=== PATIENT | female | born 1950 | race Caucasian/White ===

== ENCOUNTER → 2017-08-26 | Outpatient (CLI) | payer BC ==
--- NOTE | 2017-08-26 11:31 | MM ---
Reason for exam: screening (asymptomatic). Last mammogram was performed 1 year and 4 months ago. History: Patient is postmenopausal. Family history of premenopausal breast cancer in 2 paternal aunts at age 40. Benign excisional biopsy of the left breast, September 18, 2002. Took hormonal contraceptives for 8 years beginning at age 22. Physical Findings: A clinical breast exam by your physician is recommended on an annual basis and results should be correlated with mammographic findings. MG Screening Mammo w CAD Bilateral CC and MLO view(s) were taken. Prior study comparison: April 16, 2016, bilateral MG screening mammo w CAD. April 06, 2015, bilateral MG screening mammo w CAD. The breast tissue is extremely dense which could obscure a lesion on mammography. Finding: There are few typically benign round, linear calcifications in both breasts. There is no discrete abnormality. ASSESSMENT: Benign, BI-RAD 2 RECOMMENDATION: Routine screening mammogram of both breasts in 1 year.
== END | disposition home or self-care (01) ==
LOC: RADMAMWWP 06:59
PROVIDERS: ATTEND Family Medicine
DX: Z12.31 Encounter for screening mammogram for malignant neoplasm of breast (principal)

== ENCOUNTER 2017-08-30 06:38 | Day surgery (SDC) | payer BC ==
[2017-08-28 08:35] VITALS: BMI 38.0
[~2017-08-30 06:38] MED LIST: LACTATED RINGERS 1,000 ML IV SCH
[2017-08-30 06:59] VITALS: TEMP 96.8
[2017-08-30 07:11] LABS: Glucose,Whole Blood 137 mg/dL (75-99)
[2017-08-30] MEDS ORDERED: LIDOCAINE 1% INJ 10MG/ML (20 ML MDV) ONE (07:35)
[2017-08-30] MEDS ORDERED: PROPOFOL 10 MG/ML 20 ML VIAL IV ONE (07:35)
--- NOTE | 2017-08-30 08:05 | P.PCN ---
Date of Procedure: 08/30/17 Procedure(s) Performed: Brief history: Patient is a pleasant 66-year-old pleasant white female, scheduled for an elective upper endoscopy as well as colonoscopy as a part of evaluation oflong- standing history of GERD and change in bowel habits. Procedure performed: Esophagogastroduodenoscopywith biopsy Colonoscopy with snare polypectomy Preoperative diagnosis: GERD Change in bowel habits Anesthesia: MAC Procedure: After informed consent was obtained from the patient was brought into the endoscopy unit and IV sedation was administered by anesthesia under continuous monitoring. Initially upper endoscopy was done. The Olympus GF 160 video endoscope was inserted inserted into the mouth and esophagus intubated without any difficulty and was gradually advanced into the stomach and duodenum and carefully examined. The bulb and second part of the duodenum appeared normal. The scope was then withdrawn into the stomach adequately insufflated with air and upon careful examination the antrum had mild patchy areas of erythema consistent with gastritis and biopsies were done from this area. The body, cardia and fundus appeared normal. The scope was then withdrawn into the esophagus. The GE junction was located at 40 cm to the incisors. It appeared regular with no erythema erosions or ulcerations. Rest of the esophagus appeared normal. Patient tolerated the procedure well. At this time the patient continued to remain sedation. Initial digital rectal examination was normal. Olympus CF 160 video colonoscope was then inserted into the rectum and gradually advanced to the cecum without any difficulty. Careful examination was performed as the scope was gradually being withdrawn. The prep was excellent. In the base of the cecum there was a 5 mm polyp that was removed by snare polypectomy. The cecum, ascending colon, transverse colon, descending colon, sigmoid colon and rectum appeared normal. Scattered sigmoid diverticulosis seen. Retroflexion was performed in the rectum and no lesions were noted. Patient tolerated the procedure well. Impression: 1.Upper endoscopy revealed mild antral gastritis but no evidence of esophagitis or peptic ulcer disease 2.Colonoscopy revealed 5 mm cecal polyp status post polypectomy and scattered sigmoid diverticulosis. Recommendations: Findings of this examination were discussed with the patient as well as her family. She was advised to follow with the biopsy results. If the biopsy shows a tubular adenoma, she can have a repeat colonoscopy in 5 years.
[2017-08-30 08:30] VITALS: BP 165/72; PULSE 58; RESP 17
== END 2017-08-30 09:08 | disposition home or self-care (01) ==
LOC: ORWHC2ENDO 06:38
PROVIDERS: ATTEND Internal Medicine Gastroenterology
DX: K29.50 Unspecified chronic gastritis without bleeding (principal); K63.5 Polyp of colon; K57.30 Diverticulosis of large intestine without perforation or abscess without bleeding; K21.9 Gastro-esophageal reflux disease without esophagitis; I10 Essential (primary) hypertension; E78.5 Hyperlipidemia, unspecified; E11.9 Type 2 diabetes mellitus without complications; Z79.84 Long term (current) use of oral hypoglycemic drugs; F32.9 Major depressive disorder, single episode, unspecified; Z79.02 Long term (current) use of antithrombotics/antiplatelets; Z79.82 Long term (current) use of aspirin; Z79.899 Other long term (current) drug therapy
CPT/HCPCS: 88305; 88342; 45385; 43239; J2001; J2704

== ENCOUNTER → 2018-02-14 | Outpatient (CLI) | payer MEDICARE ==
--- NOTE | 2018-02-14 13:28 | US ---
EXAMINATION TYPE: US abdomen complete DATE OF EXAM: 02/14/2018 COMPARISON: US of kidneys CLINICAL HISTORY: R10.9 abd pain. RUQ pain EXAM MEASUREMENTS: Liver Length: 16.4 cm Gallbladder Wall: 0.2 cm CBD: 0.4 cm Spleen: 11.7 cm Right Kidney: 12.5 x 4.6 x 6.1 cm Left Kidney: 14.2 x 5.1 x 5.8 cm Pancreas: not well visualized due to midline bowel gas Liver: difficult to penetrate Gallbladder: No stones seen Evidence for sonographic Avendaño's sign: No CBD: wnl Spleen: wnl Right Kidney: small exophytic cyst measures 1.2 x 1.0 x 1.2 Left Kidney: No hydronephrosis or masses seen and the kidneys show normal cortical medullary diffe rentiation bilaterally. Upper IVC: wnl Abd Aorta: visualized portions wnl, partially obscured by bowel. There is no ascites. IMPRESSION: Exam somewhat limited. Coarse echotexture within the liver is again noted, correlate for hepatocellular disease, hepatic steatosis. Probable simple cyst lower pole right kidney exophytic loc ation.
== END | disposition home or self-care (01) ==
LOC: RADUSWWP 09:28
PROVIDERS: ATTEND Family Medicine
DX: R93.2 Abnormal findings on diagnostic imaging of liver and biliary tract (principal); R10.9 Unspecified abdominal pain
CPT/HCPCS: 76700

== ENCOUNTER → 2018-07-15 | Outpatient (CLI) | payer MEDICARE ==
--- NOTE | 2018-07-15 08:24 | MR ---
EXAMINATION TYPE: MR shoulder LT wo con DATE OF EXAM: 07/15/2018 COMPARISON: NONE HISTORY: Rotator cuff tear syndrome per order. Shoulder pain for several months with difficulty raisi ng overhead TECHNIQUE: Multiplanar, multisequence imaging of the left shoulder is performed without contrast. FINDINGS: Rotator Cuff: Supraspinatus and infraspinatus tendons are both intact to humeral head attachment. No suspicious partial or full-thickness tear is identified. Subscapularis tendon is intact. Rotator cuff muscle bulk is fairly well-maintained. Acromioclavicular Joint: There is moderate to advanced joint space loss with capsular hypertrophy and mild spurring. Inferior fat plane is maintained. Distal acromion morphology is unremarkable. Glenohumeral Joint: There is large glenohumeral joint effusion with suggestion of loose bodies as the re are round and oval areas of increased signal. Moderate joint space loss is appreciated. Labrum: Blunted increased signal superior labrum is consistent with degenerative tear. Biceps anchor is maintained. Biceps Tendon: The long head of biceps is in normal location within bicipital groove. Bone marrow signal: Subchondral cystic change superolateral humeral head is identified. Other: No additional significant abnormality is appreciated. IMPRESSION: 1. No rotator cuff tear is identified. 2. 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 Correlate with radiographs advised. 3. Moderate AC joint arthropathy without underlying impingement.
== END ==
LOC: RADMRIMAIN 06:31
PROVIDERS: ATTEND Physician Assistant Medical
DX: M12.812 Other specific arthropathies, not elsewhere classified, left shoulder (principal); M25.412 Effusion, left shoulder; M24.012 Loose body in left shoulder; I10 Essential (primary) hypertension

== ENCOUNTER → 2019-08-19 | Outpatient (CLI) | payer MEDICARE ==
--- NOTE | 2019-08-21 13:26 | MM ---
Reason for exam: screening (asymptomatic). Last mammogram was performed 2 years ago. History: Patient is postmenopausal. Family history of premenopausal breast cancer in 2 paternal aunts at age 40. Benign excisional biopsy of the left breast, September 18, 2002. Took hormonal contraceptives for 8 years beginning at age 22. Physical Findings: A clinical breast exam by your physician is recommended on an annual basis and results should be correlated with mammographic findings. MG Screening Mammo w CAD Bilateral CC and MLO view(s) were taken. Prior study comparison: August 26, 2017, bilateral MG screening mammo w CAD. April 16, 2016, bilateral MG screening mammo w CAD. The breast tissue is heterogeneously dense. This may lower the sensitivity of mammography. No significant changes when compared with prior studies. ASSESSMENT: Benign, BI-RAD 2 RECOMMENDATION: Routine screening mammogram of both breasts in 1 year.
== END | disposition home or self-care (01) ==
LOC: RADMAMWWP 14:40
PROVIDERS: ATTEND Family Medicine
DX: Z12.31 Encounter for screening mammogram for malignant neoplasm of breast (principal)
CPT/HCPCS: 77067

== ENCOUNTER → 2020-07-21 | Outpatient (CLI) | payer MEDICARE ==
--- NOTE | 2020-07-21 11:36 | US ---
EXAMINATION TYPE: US abdomen complete DATE OF EXAM: 07/21/2020 COMPARISON: 02/14/2018 CLINICAL HISTORY: 69-year-old female R10.9 ABD PAIN. TECHNIQUE: Multiple sonographic images of the abdomen are obtained. FINDINGS: Assistant Offset Press Operator notes: exam limitations due to body habitus. EXAM MEASUREMENTS: Liver Length: 15.1 cm Gallbladder Wall: .3 cm CBD: .6 cm Spleen: 11.1 cm Right Kidney: 11.1 x 4.9 x 5.0 cm Left Kidney: 11.9 x 5.1 x 4.6 cm Pancreas: Obscured by bowel gas Liver: Increased attenuation. No definite focal lesion. Gallbladder: No stones seen. Image 45 shows some artifact within the fundal lumen of the gallbladder . Evidence for sonographic Avendaño's sign: No CBD: wnl Spleen: wnl Right Kidney: Hypoechoic area seen lower pole 1.2 x 1.0 x 1.6 cm. Previously, a 1.2 cm cyst was see n in this location. Hydronephrosis. Left Kidney: No hydronephrosis. Upper IVC: wnl Abd Aorta: Upper and distal abdominal aorta borderline ectatic at 2.5 cm. IMPRESSION: 1. Moderate hepatic steatosis. 2. No gallstones. Bile duct at 6 mm is acceptable given patient's age. 3. An indeterminate 1.6 cm hypoechoic lesion within the lower pole of the right kidney. The patient's 2018 exam showed a 1.2 cm cortical cyst in this location. A cyst that has slightly enlarged in the i nterval is suspected. Internal echoes could be artifactual or could represent debris. Six-month follo w-up ultrasound recommended to reassess.
== END | disposition home or self-care (01) ==
LOC: RADUSWWP 10:47
PROVIDERS: ATTEND Family Medicine
DX: K76.0 Fatty (change of) liver, not elsewhere classified (principal)
CPT/HCPCS: 76700

== ENCOUNTER → 2020-09-15 | Outpatient (CLI) | payer MEDICARE ==
--- NOTE | 2020-09-19 12:31 | MM ---
Reason for exam: screening (asymptomatic). Last mammogram was performed 1 year and 1 month ago. History: Patient is postmenopausal. Family history of premenopausal breast cancer in 2 paternal aunts at age 40. Benign excisional biopsy of the left breast, September 18, 2002. Took hormonal contraceptives for 8 years beginning at age 22. Physical Findings: A clinical breast exam by your physician is recommended on an annual basis and results should be correlated with mammographic findings. MG Screening Mammo w CAD Bilateral CC and MLO view(s) were taken. Prior study comparison: August 19, 2019, bilateral MG screening mammo w CAD. August 26, 2017, bilateral MG screening mammo w CAD. The breast tissue is heterogeneously dense. This may lower the sensitivity of mammography. No significant changes when compared with prior studies. ASSESSMENT: Negative, BI-RAD 1 RECOMMENDATION: Routine screening mammogram of both breasts in 1 year.
== END | disposition home or self-care (01) ==
LOC: RADMAMWWP 16:17
PROVIDERS: ATTEND Family Medicine
DX: Z12.31 Encounter for screening mammogram for malignant neoplasm of breast (principal)
CPT/HCPCS: 77067

== ENCOUNTER → 2020-09-22 | Outpatient (CLI) | payer MEDICARE ==
--- NOTE | 2020-09-22 11:14 | CT ---
EXAMINATION TYPE: CT angio chest DATE OF EXAM: 09/22/2020 COMPARISON: None HISTORY: 69-year-old female R79.1 abnormal coagulation labs TECHNIQUE: Contiguous axial scanning of the chest performed with IV Contrast, patient injected with 1 00 mL of Isovue 370. Coronal/sagittal MIP reconstructions performed. CT DLP: 453 mGycm Automated exposure control for dose reduction was used. FINDINGS: Heart borderline to mildly enlarged. Trace pericardial effusion. Mild LAD coronary artery calcificati ons. Bovine configuration to the aortic arch with minimal atherosclerotic arch calcifications. There is borderline adequate opacification of the pulmonary arterial system. No large central or defi nite lobar branch pulmonary embolus. Many of the segmental and more distal arterial branches are very limited and nondiagnostic especially in the lower lobes. Scattered small mediastinal lymph nodes. No thoracic lymphadenopathy by CT size criteria. Largest priscilla sures 8 mm in the precarinal space. Prominent hazy areas of atelectasis throughout the lungs. Some mild mosaic attenuation in the upper l ungs suggests air trapping. Mild diffuse bronchial wall thickening. No consolidation or pleural effus ion. Tiny hiatal hernia. Low-density nodule of the left adrenal gland measuring 2.9 x 2.0 cm compatible with a lipid rich adre nal adenoma. Suspect some underlying fatty infiltration of the liver. Bones: Status post left shoulder arthroplasty. Mild degenerative disc disease throughout the thoracic spine. IMPRESSION: 1. BORDERLINE ADEQUATE OPACIFICATION OF THE PULMONARY ARTERIAL SYSTEM. NO LARGE CENTRAL OR DEFINITE L OBAR BRANCH PULMONARY EMBOLUS. MANY OF THE SEGMENTAL AND MORE DISTAL BRANCHES ESPECIALLY OF THE LOWER LOBES ARE NONDIAGNOSTIC. 2. BORDERLINE TO MILD CARDIOMEGALY. 3. MILD BRONCHIAL WALL THICKENING AND SOME MOSAIC ATTENUATION IN THE UPPER LUNGS SUGGESTING AIR STUART ING. CORRELATE FOR SMALL AIRWAYS DISEASE. 4. 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
== END | disposition home or self-care (01) ==
LOC: RADCTMAIN 10:12
PROVIDERS: ATTEND Family Medicine
DX: I51.7 Cardiomegaly (principal); R91.8 Other nonspecific abnormal finding of lung field; K44.9 Diaphragmatic hernia without obstruction or gangrene
CPT/HCPCS: 71275; Q9967

== ENCOUNTER 2020-10-31 06:29 | Day surgery (SDC) | payer MEDICARE ==
[2020-10-27 09:40] VITALS: BMI 42.7
[~2020-10-31 06:29] MED LIST changes: +ALPRAZolam 0.25 MG TAB PO PRN; +ALPRAZolam 0.5 MG TAB PO PRN; +ASPIRIN 325 MG TAB PO STA; +ATORVASTATIN 80 MG TAB PO STA; -LACTATED RINGERS 1,000 ML IV SCH; +NITROGLYCERIN SL TABS 0.4 MG TAB SUBLINGUAL PRN; +SODIUM CHLORIDE 0.9% 1,000 ML in EMPTY BAG 1 BAG IV ONE
[2020-10-31] MEDS ORDERED: SODIUM CHLORIDE 0.9% 1,000 ML IV ONE (06:40)
[2020-10-31 07:06] VITALS: RESP 16; TEMP 97.9
[2020-10-31 07:06] LABS: Glucose,Whole Blood 178 mg/dL (75-99)
[2020-10-31] MEDS ORDERED: LIDOCAINE 1% INJ 10MG/ML (20 ML MDV) ONE (07:28)
[2020-10-31] MEDS ORDERED: VERAPAMIL 2.5 MG/ML 2 ML AMP ONE (07:29)
[2020-10-31] MEDS ORDERED: fentaNYL (PF) 50 MCG/ML 2 ML AMP IVP ONE (07:34)
[2020-10-31] MEDS: MIDAZOLAM 2 MG/2 ML VIAL IVP ONE ×2 (07:34→07:43)
[2020-10-31] MEDS ORDERED: fentaNYL (PF) 50 MCG/ML 2 ML AMP ONE (07:34)
[2020-10-31] MEDS: LIDOCAINE 1% INJ 10MG/ML (20 ML MDV) SQ ONE ×2 (07:38→07:46)
[2020-10-31] MEDS: VERAPAMIL SYRINGE (5 MG/10 ML) INTRAARTER ONE ×2 (07:45→08:15)
[2020-10-31] MEDS ORDERED: HEPARIN SODIUM 1,000 UN/ML (10ML VL) ONE (08:01)
[2020-10-31] MEDS ORDERED: HEPARIN SODIUM 1,000 UN/ML (10ML VL) IV ONE (08:02)
[2020-10-31] MEDS ORDERED: IOPAMIDOL-370 125ML BTL INJ ONE (08:15)
[2020-10-31] MEDS ORDERED: IOPAMIDOL-370 50ML BTL INJ ONE (08:15)
[2020-10-31] MEDS ORDERED: RX INFO: IV CONTRAST WAS GIVEN 1 EACH MISC MISCELLANE PRN (08:16)
[2020-10-31 08:17] LABS: O2 Sat Blood Gas 69.3 %
[2020-10-31 08:17] LABS: O2 Sat Blood Gas 95.5 %
[2020-10-31 08:18] LABS: O2 Sat Blood Gas 70.1 %
--- NOTE | 2020-10-31 08:29 | P.CARDCATH ---
Description of Procedure: PROCEDURES PERFORMED: Left heart catheterization, left ventriculogram, bilateral coronary angiography, right heart catheterization, ultrasound-guided access INDICATION: Dyspnea on exertion, abnormal stress test, chest pain HISTORY: Patient is a pleasant 69-year-old female with history of rheumatoid arthritis, diabetes mellitus type 2, hypertension and obstructive sleep apnea who presents secondary to increasing dyspnea on exertion with fairly minimal activity over the last month. She did have workup including echocardiogram with normal left ventricular function and indeterminate diastology and a stress test which showed diaphragmatic attenuation artifact however reversible apical inferior defect. Due to persistent shortness breath and chest pressure, patient was recommended for a right and left heart catheterization. CONSENT:I have discussed the risks, benefits and alternative therapies for the above-mentioned procedure and for both sedation/analgesia as well as necessary blood product administration, if indicated, as they pertain to this patient. The patient has indicated understanding and acceptance of the risks and procedures discussed. PROCEDURE: After the risks, benefits and alternatives of the above mentioned procedure explained in detail with the patient, informed consent was obtained. Patient was taken to the catheterization lab and prepped and draped in usual fashion. 1% lidocaine was used to anesthetize the right radial artery. A 6- Nigerian sheath was placed in the right radial artery using modified Seldinger technique. 1% lidocaine was used to anesthetize the right brachial area. A 6- Nigerian sheath was placed in the right brachial vein using modified Seldinger technique an ultrasound guidance. A 6-Nigerian [place]-Kevin catheter was inserted and pressure measurements were obtained in the right atrium, right ventricle, pulmonary artery and pulmonary capillary wedge pressure. Oxygen saturations were obtained in the right atrium and pulmonary artery for Kelvin calculations. Left coronary angiography was performed with a 5-Nigerian JL 3.5 catheter and right coronary angiography was performed with a 5-Nigerian JR5 catheter in various views. A 5-Nigerian pigtail catheter was inserted into the left ventricle and pressure measurements were obtained. Left ventriculography was performed in the COBIAN projection with a power injection. The right radial sheath was removed and a TR band was placed with hemostasis achieved. The right radial sheath was removed and pressure was held with hemostasis obtained. The patient tolerated the procedure well. Patient was transported back to the post catheterization holding area in stable condition. Conscious Sedation: Patient was monitored under the direct supervision of vision of myself for conscious sedation using Versed and fentanyl for a total duration of 40 minutes RIGHT HEART CATHETERIZATION: RA: 7 mmHg RV: 40/6 mmHg PA: 41/7 (23) mmHg PCWP: 13 mmHg Ao: 133/66 LV: 146/5, LVEDP 15 mmHg PA O2 saturation: 70% RA O2 saturation: 69% Right radial O2 saturation: 96% Cardiac output: 6.83 L/min Caridac index: 3.01 L/min/m2 SELECTIVE CORONARY ARTERIOGRAPHY: LEFT MAIN: The left main is a large caliber vessel which bifurcates into the LAD and circumflex. There is no significant stenosis. LEFT ANTERIOR DESCENDING CORONARY ARTERY: LAD is a large caliber vessel which wraps around to the apex. There is no significant stenosis. LEFT CIRCUMFLEX CORONARY ARTERY: Left circumflex is a moderate caliber vessel without significant stenosis. RIGHT CORONARY ARTERY: The right coronary artery is a large caliber vessel which gives off a PDA and PLV branch and is the dominant vessel. There is no significant stenosis. LEFT VENTRICULOGRAPHY: Left ventricular ejection fraction is 60% without wall motion abnormalities. There is 1+ mitral regurgitation and no significant gradient with pullback across the aortic valve. FINAL IMPRESSION: 1. Normal coronary arteries as described above. 2. Normal ejection fraction 60% percent without wall motion abnormalities. 3. Normal left and right sided pressures 4. Mild mitral regurgitation PLAN: 1. Aggressive risk factor modification per most recent ACC/AHA guidelines. Consider noncardiac workup of dyspnea. 2. Follow-up in the office in 1-2 weeks.
[2020-10-31 14:27] VITALS: BP 135/70; PULSE 66
== END 2020-10-31 12:08 | disposition home or self-care (01) ==
LOC: CATHCVL 06:29
PROVIDERS: ATTEND Internal Medicine
DX: I34.0 Nonrheumatic mitral (valve) insufficiency (principal); R06.00 Dyspnea, unspecified; R07.2 Precordial pain; R94.39 Abnormal result of other cardiovascular function study; M06.9 Rheumatoid arthritis, unspecified; G47.33 Obstructive sleep apnea (adult) (pediatric); E11.9 Type 2 diabetes mellitus without complications; I10 Essential (primary) hypertension; E78.5 Hyperlipidemia, unspecified; E66.9 Obesity, unspecified; Z68.41 Body mass index [BMI] 40.0-44.9, adult; Z82.49 Family history of ischemic heart disease and other diseases of the circulatory system
CPT/HCPCS: 93460; 85018; 82810; C1751; C1769; C1894; J2250; J2001; J3010; J1644; Q9967 ×2

== ENCOUNTER → 2020-11-08 | Outpatient (CLI) | payer MEDICARE ==
[2020-11-08 16:01] LABS: Basophils % (A) 0 %; Eosinophils # (A) 0.1 k/uL (0-0.7); Eosinophils % (A) 1 %; HCT 39.1 % (34.0-46.0); HGB 12.8 gm/dL (11.4-16.0); Lymphocytes # (A) 2.3 k/uL (1.0-4.8); Lymphocytes % (A) 26 %; MCH 27.8 pg (25.0-35.0); MCHC 32.7 g/dL (31.0-37.0); Mean Platelet Volume 6.9; Monocytes # (A) 0.5 k/uL (0-1.0); Monocytes % (A) 6 %; Neutrophils # (A) 5.6 k/uL (1.3-7.7); Neutrophils % (A) 64 %; Platelet Count 273 k/uL (150-450); RDW 13.5 % (11.5-15.5); WBC 8.6 k/uL (3.8-10.6)
[2020-11-09 02:53] LABS: African American GFR (CKD) 103.2 (60.0-200.0); Albumin 4.6 g/dL (3.80-4.90); Albumin/Globulin Ratio 2.88 (1.60-3.17); Anion Gap 9.9 mmol/L (4.00-12.00); BUN/Creat Ratio 21.43 Ratio (12.00-20.00); Calcium 9.5 mg/dL (8.7-10.3); Carbon Dioxide 29.1 mmol/L (21.6-31.8); Globulin 1.6 g/dL (1.6-3.3); Potassium 3.6 mmol/L (3.5-5.5); Total Bilirubin 0.4 mg/dL (0.2-1.2); Total Protein 6.2 g/dL (6.2-8.2)
== END | disposition home or self-care (01) ==
LOC: LABWHC1 15:27
PROVIDERS: ATTEND Nurse Practitioner Adult Health
DX: R10.9 Unspecified abdominal pain (principal); R14.0 Abdominal distension (gaseous)
CPT/HCPCS: 36415; 80053; 82140; 82150; 83690; 85025

== ENCOUNTER → 2020-11-09 | Outpatient (CLI) | payer MEDICARE ==
--- NOTE | 2020-11-09 10:38 | CT ---
EXAMINATION TYPE: CT abdomen pelvis wo con DATE OF EXAM: 11/09/2020 HISTORY: Abdominal pain not further specified. CT DLP: 1232.50 mGycm. Automated Exposure Control for Dose Reduction was Utilized. TECHNIQUE: CT scan of the abdomen and pelvis is performed without oral or IV contrast. COMPARISON: CT abdomen and pelvis February 24, 2011 FINDINGS: Within the limitations of a non-contrast study, the following observations are made. LUNG BASES: No significant abnormality is appreciated. LIVER/GB: Visualized liver is heterogeneously hypodense consistent with diffuse fatty infiltration. PANCREAS: No significant abnormality is seen. SPLEEN: No significant abnormality is seen. ADRENALS: There is 3.0 x 2.1 cm low dense left adrenal mass axial image 20, Hounsfield units average -1 consistent with benign lipid rich adenoma. KIDNEYS: No renal stones or hydronephrosis is seen bilaterally. BOWEL: Occasional scattered diverticula of the transverse colon. More prominent diverticulosis in the left and sigmoid colon. No convincing CT evidence for acute diverticulitis. No suspicious small or l arge bowel dilatation. Normal-appearing appendix from cecum in the right lower quadrant. GENITAL ORGANS: Uterus is surgically absent. LYMPH NODES: No greater than 1cm abdominal or pelvic lymph nodes are appreciated. OSSEOUS STRUCTURES: Posterior spur effaces the anterior thecal sac L4-L5 level sagittal image 76. Mul tilevel facet arthropathy in the lower lumbar spine. OTHER: No significant additional abnormality is seen. IMPRESSION: Prominent Distal colonic diverticulosis without convincing CT evidence for acute divertic ulitis. No suspicious new or acute findings are evident
== END | disposition home or self-care (01) ==
LOC: RADCTMAIN 09:53
PROVIDERS: ATTEND Family Medicine
DX: K57.30 Diverticulosis of large intestine without perforation or abscess without bleeding (principal)
CPT/HCPCS: 74176

== ENCOUNTER 2020-12-30 06:46 | Day surgery (SDC) | payer MEDICARE ==
[2020-12-28 13:02] VITALS: BMI 43.5
[~2020-12-30 06:46] MED LIST changes: -ALPRAZolam 0.25 MG TAB PO PRN; -ALPRAZolam 0.5 MG TAB PO PRN; -ASPIRIN 325 MG TAB PO STA; -ATORVASTATIN 80 MG TAB PO STA; +LACTATED RINGERS 1,000 ML IV SCH; -NITROGLYCERIN SL TABS 0.4 MG TAB SUBLINGUAL PRN; -SODIUM CHLORIDE 0.9% 1,000 ML in EMPTY BAG 1 BAG IV ONE
[2020-12-30] MEDS ORDERED: LACTATED RINGERS 1,000 ML IV ONE (07:15)
[2020-12-30] MEDS ORDERED: LIDOCAINE 1% INJ 10MG/ML (20 ML MDV) ONE (07:27)
[2020-12-30] MEDS ORDERED: PROPOFOL 10 MG/ML 20 ML VIAL IV ONE (07:27)
[2020-12-30 07:28] VITALS: RESP 16; TEMP 98.4
[2020-12-30 07:29] LABS: Glucose,Whole Blood 152 mg/dL (75-99)
--- NOTE | 2020-12-30 07:44 | P.PCN ---
Date of Procedure: 12/30/20 Procedure(s) Performed: BRIEF HISTORY: Patient is a 70-year-old pleasant white female scheduled for an elective colonoscopy as a part of evaluation of prior history of colon polyps. Last colonoscopy was 5 years ago. PROCEDURE PERFORMED: Colonoscopy with biopsy. PREOPERATIVE DIAGNOSIS: History of colon polyps. IV sedation per Anesthesia. PROCEDURE: After informed consent was obtained, the patient, was brought into the endoscopy unit. IV sedation was administered by Anesthesia under continuous monitoring. Digital rectal examination was normal. Initially the Olympus CF-160 flexible video colonoscope was then inserted in the rectum, gradually advanced into the cecum without any difficulty. Careful examination was performed as the scope was gradually being withdrawn. Ileocecal valve and the appendiceal orifice were visualized and appeared normal. Prep was excellent. Mucosa of the cecum, appeared normal. In the ascending colon there was a 2 mm polyp that was removed by cold biopsy. Rest of the ascending colon, transverse colon, descending colon, sigmoid colon, and rectum appeared normal. scattered left-sided diverticulosis seen.. Retroflexion was performed in the rectum and no lesions were seen. The patient tolerated the procedure well. IMPRESSION: 2 mm sessile ascendingcolon polyp status post removal by cold biopsy Scattered left-sided diverticulosis RECOMMENDATIONS: Findings of this examination were discussed with patient as well as her family. She was advised to follow with the biopsy results. She can have a repeat colonoscopy in 5 years from now.
[2020-12-30 08:01] VITALS: BP 135/69; PULSE 66
== END 2020-12-30 08:31 | disposition home or self-care (01) ==
LOC: ORWHC2ENDO 06:46
PROVIDERS: ATTEND Internal Medicine Gastroenterology
DX: D12.2 Benign neoplasm of ascending colon (principal); K57.30 Diverticulosis of large intestine without perforation or abscess without bleeding; Z86.010 Personal history of colon polyps
CPT/HCPCS: 45380; 88305; J2001; J2704

== ENCOUNTER → 2021-05-25 | Outpatient (CLI) | payer MEDICARE ==
--- NOTE | 2021-05-26 08:06 | US ---
EXAMINATION TYPE: US kidneys/renal and bladder DATE OF EXAM: 05/25/2021 COMPARISON: CT 11/09/2020 CLINICAL HISTORY: N28.1 CYST OF KIDNEY. Frequent urination. Hx of hysterectomy. Difficult and limited exam due to patient body habitus. Patient attempted to drink more water to fill bladder at time of e xam. EXAM MEASUREMENTS: Right Kidney: 12.1 x 5.7 x 4.9 cm Left Kidney: 11.0 x 5.2 x 4.7 cm Right Kidney: No hydronephrosis or renal calculi seen. Heterogeneous hypoechoic structure at the late ral midpole measuring 1.1 x 1.2 x 1.2 cm Left Kidney: No hydronephrosis or renal calculi seen Bladder: Not well visualized. Patient stayed and drank more water at time of exam. Unable to visualiz e due to patient body habitus IMPRESSION: 1. The urinary bladder is not visualized due to patient's large body habitus. 2. No hydronephrosis or shadowing renal calculi. 3. Heterogeneous hypoechoic structure at the lateral midpole of the right kidney measuring 1.2 cm. Th is may represent a hemorrhagic or proteinaceous cyst but is indeterminate. A small renal cell carcino ma cannot be excluded. A CT or MRI of the abdomen using renal protocol with IV contrast is recommende d.
== END | disposition home or self-care (01) ==
LOC: RADUSWWP 15:27
PROVIDERS: ATTEND Family Medicine
DX: R35.0 Frequency of micturition (principal)
CPT/HCPCS: 76770

== ENCOUNTER → 2021-06-27 | Outpatient (CLI) | payer MEDICARE | END | disposition home or self-care (01) | LOC: RADMRIMAIN 12:16 | PROVIDERS: ATTEND Family Medicine | DX: Z53.9 Procedure and treatment not carried out, unspecified reason (principal) ==

== ENCOUNTER → 2021-07-25 | Outpatient (CLI) | payer MEDICARE ==
[2021-07-25 18:05] LABS: Basophils # (A) 0.03 X 10*3/uL (0.00-0.10); Basophils % (A) 0.6 %; Eosinophils # (A) 0.07 X 10*3/uL (0.04-0.35); Eosinophils % (A) 1.3 %; HCT 39.9 % (37.2-46.3); HGB 12.4 g/dL (12.0-15.0); Lymphocytes # (A) 1.57 X 10*3/uL (0.90-5.00); Lymphocytes % (A) 29.2 %; MCH 26.7 pg (27.0-32.0); MCHC 31.1 g/dL (32.0-37.0); Mean Platelet Volume 10.4 fL (9.5-12.2); Monocytes % (A) 7.4 %; Neutrophils # (A) 3.29 X 10*3/uL (1.80-7.70); Neutrophils % (A) 61.1 %; Platelet Count 274 X 10*3/uL (140-440); RBC 4.64 X 10*6/uL (4.10-5.20); RDW 14.4 % (11.5-14.5); WBC 5.38 X 10*3/uL (4.50-10.00)
[2021-07-25 22:41] LABS: African American GFR (CKD) 108.5 (60.0-200.0); Albumin 4.5 g/dL (3.80-4.90); Anion Gap 14.4 mmol/L (4.00-12.00); BUN/Creat Ratio 21.67 Ratio (12.00-20.00); Calcium 9.4 mg/dL (8.7-10.3); Carbon Dioxide 24.6 mmol/L (21.6-31.8); Non-African American GFR(CKD) 93.7 (60.0-200.0); Total Protein 6.4 g/dL (6.2-8.2)
[2021-07-25 22:42] LABS: Albumin/Globulin Ratio 2.37 (1.60-3.17); Globulin 1.9 g/dL (1.6-3.3); Total Bilirubin 0.4 mg/dL (0.2-1.2)
== END | disposition home or self-care (01) ==
LOC: LABWHC1 09:36
PROVIDERS: ATTEND Nurse Practitioner Adult Health
DX: D35.00 Benign neoplasm of unspecified adrenal gland (principal); N28.1 Cyst of kidney, acquired
CPT/HCPCS: 36415; 80053; 82024; 82088; 82533; 83835; 84244; 85025

== ENCOUNTER → 2021-09-21 | Outpatient (CLI) | payer MEDICARE | END | disposition home or self-care (01) | LOC: LABWHC1 09:50 | PROVIDERS: ATTEND Urology | DX: D35.00 Benign neoplasm of unspecified adrenal gland (principal) | CPT/HCPCS: 36415; 82533; 83835 ==

== ENCOUNTER → 2021-12-19 | Outpatient (CLI) | payer MEDICARE ==
--- NOTE | 2021-12-20 09:26 | MM ---
Reason for exam: screening (asymptomatic). Last mammogram was performed 1 year and 3 months ago. History: Patient is postmenopausal. Family history of premenopausal breast cancer in 2 paternal aunts at age 40. Benign excisional biopsy of the left breast, September 18, 2002. Took hormonal contraceptives for 8 years beginning at age 22. Physical Findings: A clinical breast exam by your physician is recommended on an annual basis and results should be correlated with mammographic findings. MG 3D Screening Mammo W/Cad Bilateral CC and MLO view(s) were taken. Prior study comparison: September 15, 2020, bilateral MG screening mammo w CAD. August 19, 2019, bilateral MG screening mammo w CAD. The breast tissue is heterogeneously dense. This may lower the sensitivity of mammography. No significant changes when compared with prior studies. ASSESSMENT: Negative, BI-RAD 1 RECOMMENDATION: Routine screening mammogram of both breasts in 1 year.
== END | disposition home or self-care (01) ==
LOC: RADMAMWWP 07:09
PROVIDERS: ATTEND Family Medicine
DX: Z12.31 Encounter for screening mammogram for malignant neoplasm of breast (principal)
CPT/HCPCS: 77063; 77067

== ENCOUNTER → 2023-09-24 | Outpatient (CLI) | payer MEDICARE ==
[2023-09-24 15:44] LABS: Basophils # (A) 0.03 X 10*3/uL (0.00-0.10); Basophils % (A) 0.4 %; Eosinophils # (A) 0.04 X 10*3/uL (0.04-0.35); Eosinophils % (A) 0.5 %; HCT 39.9 % (37.2-46.3); HGB 13.3 d/dL (12.0-15.0); Lymphocytes # (A) 0.95 X 10*3/uL (0.90-5.00); Lymphocytes % (A) 12.7 %; MCH 29.9 pg (27.0-32.0); MCHC 33.3 d/dL (32.0-37.0); MCV 89.7 FL (80.0-97.0); Mean Platelet Volume 10.1 FL (9.5-12.2); Monocytes % (A) 6.7 %; NRBC Per 100 WBC 0 X 10*3/uL (0.00-0.01); Neutrophils # (A) 5.96 X 10*3/uL (1.80-7.70); Neutrophils % (A) 79.4 %; Platelet Count 283 X 10*3/uL (140-440); RBC 4.45 X 10*6/uL (4.10-5.20); RDW 13.5 % (11.5-14.5)
[2023-09-24 16:09] LABS: Chol/HDL Ratio 2.64 Ratio; Creatine Kinase 149 U/L (26-186); LDL Cholesterol,Calculated 76.2 mg/dL (0.0-131.0)
[2023-09-24 16:22] LABS: ALT 32 U/L (8-44); AST 25 U/L (13-35); Albumin 4.7 d/dL (3.8-4.9); Albumin/Globulin Ratio 2.47 Ratio (1.60-3.17); Alkaline Phosphatase 45 U/L (41-126); BUN/Creat Ratio 15.57 Ratio (12.00-20.00); Blood Urea Nitrogen 10.9 mg/dL (9.0-27.0); Calcium 9.6 mg/dL (8.7-10.3); Carbon Dioxide 25.1 mmol/L (21.6-31.8); Chloride 102 mmol/L (96-109); Globulin 1.9 d/dL (1.6-3.3); Glucose 153 mg/dL (70-110); Potassium 3.9 mmol/L (3.5-5.5); Sodium 143 mmol/L (135-145); Total Bilirubin 0.4 mg/dL (0.3-1.2); Total Protein 6.6 d/dL (6.2-8.2)
== END | disposition home or self-care (01) ==
LOC: LABWHC1 08:10
PROVIDERS: ATTEND Family Medicine
DX: E78.5 Hyperlipidemia, unspecified (principal); E03.9 Hypothyroidism, unspecified
CPT/HCPCS: 36415; 80053; 80061; 82550; 84439; 84443; 85025